=== PATIENT | female | born 1965 | race Caucasian/White ===

== ENCOUNTER 2024-07-27 06:39 | Day surgery (SDC) | payer OTHER ==
[~2024-07-27] VITALS: Ht 165.1 cm; Wt 96.8 kg
[~2024-07-27 06:39] MED LIST: SODIUM CHLORIDE 0.9% 1,000 ML ONE
[2024-07-27] MEDS ORDERED: DEXTROSE IV ONE (07:44)
[2024-07-27] MEDS ORDERED: SODIUM CHL IV ONE (07:44)
[2024-07-27] MEDS: SODIUM CHLORIDE 0.9% 1,000 ML IV ONE (07:56)
[2024-07-27] MEDS ORDERED: DULO-113 PO (07:57)
[2024-07-27] MEDS ORDERED: METF-1211 PO (07:57)
[2024-07-27] MEDS ORDERED: FentaNYL CITRATE PF 100 MCG/2 ML VIAL ONE (08:03)
[2024-07-27] MEDS ORDERED: MIDAZOLAM HCL 2 MG/2 ML VIAL ONE (08:04)
[2024-07-27] MEDS: DEXTROSE 5%-0.45% SODIUM CHL 1,000 ML IV ONE (08:04)
[2024-07-27 08:06] LABS: GLUCOMETER DEV NAME(LOC) SDS.; GLUCOSE,POINT OF CARE 67 MG/DL (70-110)
[2024-07-27 08:56] LABS: GLUCOMETER DEV NAME(LOC) SDS.; GLUCOSE,POINT OF CARE 116 MG/DL (70-110)
[2024-07-27 09:52] VITALS: PULSE 67; RESP 16; O2SAT 99
[2024-07-27] MEDS ORDERED: MethylPREDNISolone SOD SUCC 125 MG/2 ML VIAL ONE ×2 (10:01→10:14)
[2024-07-27] MEDS: MethylPREDNISolone SOD SUCC 125 MG/2 ML VIAL IVP ONE (10:17)
[2024-07-27] MEDS ORDERED: LIDOCAINE 2% 11 ML JELLY ONE (12:00)
[2024-07-27] MEDS ORDERED: ALBUTEROL SULFATE 2.5 MG/0.5 ML NEB SOLUTION NEB ONE (12:00)
[2024-07-27] MEDS ORDERED: BENZOCAINE 20% 50 MCG/SPRAY 57 GM ONE (12:00)
[2024-07-27] MEDS ORDERED: LIDOCAINE 4% 50 ML SOLUTION ONE (12:00)
== END 2024-07-27 13:10 | disposition home or self-care (01) ==
LOC: SURGERY 06:39
PROVIDERS: ATTEND Internal Medicine Critical Care Medicine
DX: R05.3 Chronic cough (principal); R06.2 Wheezing; R49.0 Dysphonia; R04.2 Hemoptysis; R91.8 Other nonspecific abnormal finding of lung field; J38.4 Edema of larynx; B37.0 Candidal stomatitis; G47.33 Obstructive sleep apnea (adult) (pediatric); M19.90 Unspecified osteoarthritis, unspecified site; F17.210 Nicotine dependence, cigarettes, uncomplicated; Z90.49 Acquired absence of other specified parts of digestive tract; Z90.89 Acquired absence of other organs; Z91.040 Latex allergy status
CPT/HCPCS: 31623; 31624; 71045; 82962; 87015; 87070; 87101; 87206; 87220; 88108; 94640; J2250; J2919; J3010; J7030; J7613; Z7610